=== PATIENT | female | born 1995 | race Caucasian/White ===

== ENCOUNTER → 2017-08-24 08:38 | Outpatient (CLI) | payer OTHER, SELFPAY ==
--- NOTE | 2017-08-24 | DI.MRI.S_ITS ---
BREAST MRI OF BOTH BREASTS : 08/24/2017 CLINICAL: Right breast mass. Comparison is made to exams dated: 06/16/2017 ultrasound, 06/16/2017 ultrasound - [facility], 11/26/2015 ultrasound, and 11/26/2015 ultrasound [facility]. Informed consent was obtained from the patient. Axial T1, T2, and pre and post contrast T1 images were obtained. Bilateral background breast enhancement is moderate. There is no abnormal enhancement, masses, or areas of distortion bilaterally. No MRI abnormality to correspond to the bilateraly clinical areas of concern. IMPRESSION: NEGATIVE There is no abnormality seen in either breast to correspond with the area of clinical concern, however, clinical followup is recommended. There is no MRI evidence of malignancy bilaterally. This exam was interpreted at Station ID: [id number]. Electronically Signed By: Luisito Horta M.D. cj/:08/25/2017 08:21:25 Entry: - 08/25/2017 08:21:25 copy to: [facility] ACR BI-RADS Category 1: Negative [id number]
== END ==
PROVIDERS: Family Provider Family Medicine; PCP Family Medicine; Visit Provider Surgery
DX: N63.10 Unspecified lump in the right breast, unspecified quadrant (principal)
CPT/HCPCS: C8908

== ENCOUNTER → 2018-07-26 12:02 | Outpatient (CLI) | payer OTHER, SELFPAY ==
--- NOTE | 2018-07-26 12:03 | DI.RAD.S_ITS ---
PROCEDURE: XR ACUTE ABDOMEN SERIES INDICATIONS: Constipation, vomiting TECHNIQUE: One view chest and two views of the abdomen were acquired. COMPARISON: None. FINDINGS: Surgical changes and devices: None. Chest: Lungs are clear. Heart size is normal. No pleural effusions. No pneumoperitoneum. Abdomen: Bowel gas pattern is normal. No suspicious calcifications. Visualized solid organ contours appear normal. Bones: No suspicious bony lesions. IMPRESSION: Normal for age, source of current emesis symptoms is not seen. Dictated by: Rufino Han M.D. on 07/26/2018 at 13:11 Approved by: Rufino Han M.D. on 07/26/2018 at 13:11
== END ==
PROVIDERS: Visit Provider Registered Nurse
DX: K59.00 Constipation, unspecified (principal); R11.10 Vomiting, unspecified
CPT/HCPCS: 74022

== ENCOUNTER → 2019-07-02 13:32 | Outpatient (CLI) | payer OTHER, SELFPAY ==
--- NOTE | 2019-07-02 13:34 | DI.US.S_ITS ---
LIMITED ULTRASOUND OF RIGHT BREAST: 07/02/2019 CLINICAL: Area of palpable diffuse masses right breast. Comparison is made to exams dated: 08/24/[address] [facility], 06/16/2017 ultrasound, and 06/16/2017 ultrasound - [facility]. Real-time ultrasound of the right breast 4-6 o'clock region was performed. Jackson scale images of the real-time examination were reviewed. No significant abnormalities were seen sonographically in the right breast in the region of palpable abnormalities. IMPRESSION: NEGATIVE There is no sonographic evidence of malignancy. Patient is advised to monitor for significant change. Recommend continued clinical surveillance. Return to annual mammogram screening schedule is recommended. This exam was interpreted at Station ID: [id number]. Electronically Signed By: Jose Dominguez M.D. slc/:07/02/2019 15:24:13 copy to: [facility] letter sent: Clinical Evaluation Ultrasound BI-RADS: 1 Negative
--- NOTE | 2019-07-02 13:34 | DI.US.S_ITS ---
LIMITED ULTRASOUND OF LEFT BREAST: 07/02/2019 CLINICAL: Diffuse area of left breast masses. Comparison is made to exams dated: 08/24/2017 breast MRI - [facility], 06/16/2017 ultrasound, 06/16/2017 ultrasound [facility], 11/26/2015 ultrasound, and 11/26/2015 ultrasound [facility]. Real-time ultrasound of the left breast 1-3 o'clock and 9 o'clock regions was performed. Jackson scale images of the real-time examination were reviewed. No significant abnormalities were seen sonographically in the left breast in the region of palpable abnormalities. IMPRESSION: NEGATIVE There is no sonographic evidence of malignancy. Patient is advised to monitor breasts for significant change. Recommend continue clinical surveillance. Return to annual mammogram screening schedule is recommended. This exam was interpreted at Station ID: [id number]. Electronically Signed By: Jose Dominguez M.D. slc/:07/02/2019 15:22:43 copy to: [facility] letter sent: Clinical Evaluation Ultrasound BI-RADS: 1 Negative
== END ==
PROVIDERS: PCP Registered Nurse; Referring Provider Registered Nurse; Visit Provider Registered Nurse
DX: N63.10 Unspecified lump in the right breast, unspecified quadrant (principal); N63.20 Unspecified lump in the left breast, unspecified quadrant
CPT/HCPCS: 76642

== ENCOUNTER → 2019-12-18 11:11 | Outpatient (CLI) | payer OTHER, SELFPAY ==
--- NOTE | 2019-12-18 11:12 | DI.US.S_ITS ---
PROCEDURE: US ABDOMEN COMPLETE INDICATIONS: abdominal pain, nausea, vomiting 3 months TECHNIQUE: Real-time scanning was performed of the abdominal and retroperitoneal organs, with image documentation. COMPARISON: [facility], CR, XR ACUTE ABDOMEN SERIES, 07/26/2018, 12:06. FINDINGS: Liver: Liver is normal in size and homogeneous in echotexture. Gallbladder: No findings of gallstones or sludge are seen. The gallbladder wall is not thickened, measuring 3 mm or less. No specific pericholecystic fluid is seen. The sonographic Delatorre sign is negative. Biliary ducts: Intrahepatic bile ducts are non-dilated. Extrahepatic bile duct caliber measures 2 mm. Normal is 6-7 mm or less in diameter, or 10 mm or less post-cholecystectomy. Pancreas: Visualized portions of the pancreas are sonographically normal. Spleen: Spleen is normal in size and homogeneous in echotexture. Kidneys: Kidneys are normal in size and echotexture. Right kidney measures 9.8 cm long; left kidney measures 9.6 cm long. No hydronephrosis or nephrolithiasis. No solid masses. Aorta: Visualized aorta is normal in caliber at less than 3 cm. Iliacs: Proximal common iliac arteries are normal in caliber at less than 2.5 cm. IVC: Intrahepatic inferior vena cava is patent. Miscellaneous: No free abdominal fluid. IMPRESSION: The gallbladder demonstrates a normal sonographic appearance. No biliary dilatation is seen. Negative ultrasound. Dictated by: Lauro Nance M.D. on 12/18/2019 at 12:07 Approved by: Lauro Nance M.D. on 12/18/2019 at 12:08
== END ==
PROVIDERS: PCP Nurse Practitioner Family; Referring Provider Nurse Practitioner Family; Visit Provider Nurse Practitioner Family
DX: R10.9 Unspecified abdominal pain (principal); R11.2 Nausea with vomiting, unspecified
CPT/HCPCS: 76700

== ENCOUNTER → 2020-03-20 16:31 | Outpatient (CLI) | payer OTHER, SELFPAY ==
[2020-03-20 17:29] LABS: Influenza A - CEPHEID Flu A NEGATIVE (NEGATIVE); Influenza B - CEPHEID Flu B NEGATIVE (NEGATIVE)
[2020-03-20 18:26] LABS: COVID19 -Nasal RAPID Negative (Negative)
== END ==
PROVIDERS: PCP Nurse Practitioner Family; Visit Provider Family Medicine
DX: J02.9 Acute pharyngitis, unspecified (principal); R05 Cough; R09.81 Nasal congestion
CPT/HCPCS: 87502; 87635

== ENCOUNTER → 2020-05-16 16:13 | Outpatient (CLI) | payer OTHER, SELFPAY ==
[2020-05-16 16:32] LABS: Hematocrit 38.5 % (36-46); Mean Corpuscular HGB Conc 33.8 % (30-36); Mean Corpuscular Hemoglobin 29.2 PG (26-34); Mean Corpuscular Volume 86.4 fL (80-100); Platelet Count 257 X10^3/uL (150-400); Red Blood Cell Count 4.46 X10^6/uL (4.0-5.2); Red Cell Distribution Width 12.8 % (11.6-14.8); White Blood Cell Count 8.5 X10^3/uL (4.5-11.0)
[2020-05-16 16:49] LABS: Alanine Aminotransferase 29 IU/L (<35); Albumin 4.5 g/dL (3.5-5.0); Albumin Globulin Ratio 1.5 (1.0-2.8); Alkaline Phosphatase 38 U/L (38-126); Aspartate Aminotransferase 27 IU/L (14-36); BUN Creatinine Ratio 23.3 (6-22); Bilirubin Total 0.4 mg/dL (0.2-1.3); Blood Urea Nitrogen 17 mg/dL (7-17); Calcium 9.4 mg/dL (8.4-10.2); Carbon Dioxide 27 mmol/L (22-32); Chloride 106 mmol/L (98-107); Estimated Glomerular Filt Rate > 60.0 mL/min (>60); Globulin 3.1 g/dL (1.7-4.1); Glucose 93 mg/dL (70-100); HEMOLYSIS < 15 (0-50); Potassium 3.6 mmol/L (3.4-5.1); Sodium 137 mmol/L (137-145); Total Protein 7.6 g/dL (6.3-8.2)
[2020-05-16 16:50] LABS: Pregnancy Test Urine Negative (Negative)
[2020-05-16 17:22] LABS: TSH w/ Reflex to FT4 1.58 uIU/mL (0.47-4.68)
== END ==
PROVIDERS: PCP Nurse Practitioner Family; Referring Provider Nurse Practitioner Family; Visit Provider Nurse Practitioner Family
DX: F41.9 Anxiety disorder, unspecified (principal); R10.9 Unspecified abdominal pain; R11.2 Nausea with vomiting, unspecified
CPT/HCPCS: 36415; 80053; 81025; 84443; 85027

== ENCOUNTER → 2020-11-19 12:43 | Outpatient (CLI) | payer OTHER, SELFPAY ==
--- NOTE | 2020-11-19 12:45 | DI.US.S_ITS ---
LIMITED ULTRASOUND OF RIGHT BREAST: 11/19/2020 CLINICAL: Focal right breast swelling and pain. Comparison is made to exams dated: 10/16/2019 ultrasound - [facility], 07/02/2019 ultrasound, 08/24/2017 breast MRI - [facility], 06/16/2017 ultrasound - [facility], and 11/26/2015 ultrasound [facility]. Color flow and real-time ultrasound of the right breast were performed. Jackson scale images of the real-time examination were reviewed. No abnormality demonstrated in the breast. IMPRESSION: NEGATIVE There is no sonographic evidence of malignancy. This exam was interpreted at Station ID: [id number]. Electronically Signed By: Naren Hunter M.D. jr/:11/19/2020 13:12:03 copy to: [facility] letter sent: Normal Exam Ultrasound BI-RADS: 1 Negative
== END ==
PROVIDERS: PCP Nurse Practitioner Family; Referring Provider Nurse Practitioner Family; Visit Provider Nurse Practitioner Family
DX: N63.10 Unspecified lump in the right breast, unspecified quadrant (principal); N64.4 Mastodynia
CPT/HCPCS: 76642

== ENCOUNTER → 2021-06-18 15:50 | Outpatient (CLI) | payer OTHER, SELFPAY ==
[2021-06-18 18:07] LABS: HCG Quantitative /Beta subunit 22830 mIU/mL
== END ==
PROVIDERS: PCP Nurse Practitioner Family; Referring Provider Obstetrics & Gynecology; Visit Provider Obstetrics & Gynecology
DX: N91.2 Amenorrhea, unspecified (principal)
CPT/HCPCS: 36415; 84702

== ENCOUNTER → 2021-06-20 12:48 | Outpatient (CLI) | payer OTHER, SELFPAY ==
[2021-06-20 14:54] LABS: HCG Quantitative /Beta subunit 29926 mIU/mL
== END ==
PROVIDERS: PCP Nurse Practitioner Family; Referring Provider Obstetrics & Gynecology; Visit Provider Obstetrics & Gynecology
DX: N91.2 Amenorrhea, unspecified (principal)
CPT/HCPCS: 36415; 84702

== ENCOUNTER → 2021-06-23 14:00 | Outpatient (CLI) | payer OTHER, SELFPAY ==
[2021-06-23 15:11] LABS: HCG Quantitative /Beta subunit 39136 mIU/mL
== END ==
PROVIDERS: PCP Nurse Practitioner Family; Referring Provider Obstetrics & Gynecology; Visit Provider Obstetrics & Gynecology
DX: O20.0 Threatened abortion (principal)
CPT/HCPCS: 36415; 84702

== ENCOUNTER → 2021-06-29 12:36 | Outpatient (CLI) | payer OTHER, SELFPAY ==
[2021-06-29 15:59] LABS: HCG Quantitative /Beta subunit 54247 mIU/mL
[2021-06-29 18:33] LABS: COVID19 -Nasal RAPID Negative (Negative)
== END ==
PROVIDERS: PCP Nurse Practitioner Family; Referring Provider Obstetrics & Gynecology; Visit Provider Obstetrics & Gynecology
DX: Z01.812 Encounter for preprocedural laboratory examination (principal); Z20.822 Contact with and (suspected) exposure to COVID-19; O02.0 Blighted ovum and nonhydatidiform mole
CPT/HCPCS: 36415; 84702; 86850; 86900; 86901; 87635

== ENCOUNTER 2021-06-30 15:06 | Day surgery (SDC) | payer OTHER, SELFPAY ==
[2021-06-29 14:54] VITALS: BMI 21.3
[2021-06-30] VITALS (9 sets, daily range): BP systolic 88–121; BP diastolic 35–76; PULSE 64–80; RESP 14–18; TEMP 36.3–37; O2SAT 98–100; BMI 21.3
--- NOTE | 2021-06-30 | PATH_ITS ---
[facility] Accession Number: [id number] . 01 Material submitted: . product of conception - PRODUCT OF CONCEPTION . 02 Diagnosis: Products of Conception: Products of conception identified. V 07/03/2021 1135 Local . 02 Electronically signed: . Loren Mancia MD, Pathologist NPI- [id number] . 01 Gross description: . Received in one part. . Received in formalin and labeled with the patient's name and designated 1. product of conception is a 5.5 x 3.5 x 1.2 cm aggregate of pink-dixon hemorrhagic tissue fragments and mucoid material. Villous tissue is identified. No parts are identified. Recycling Coordinator sections of the villous tissue are submitted in A1. (CHAPARRO:[id number]) /[facility] 07/02/2021 1717 Local . 02 Pathologist provided ICD-10: O02.0 . 02 CPT . 809229 Specimen Comment: A courtesy copy of this report has been sent to [phone] Performed at: 01 [facility] [address] [id number] MD Mario Pugh MD Phone: [phone] Performed at: 02 [facility] [place] [address] [employer], [place] [id number] MD Sonali Bonds MD Phone: [phone]
--- NOTE | 2021-06-30 15:50 | PM.PREOP ---
Pre-operative Note COVID-19 COVID-19 status: Negative Result date/Date tested (Pos, Neg/Pending): 06/29/21 Criteria for continued procedure: Non-surgical alternatives not available or appropriate per current SOC Interval Note History & Physical reviewed/Exam performed by Physician: Yes Changes to H&P: No
[2021-06-30] MEDS: LACTATED RINGERS 1,000 ML 100 ML IV (16:03)
[2021-06-30] MEDS: DOXYCYCLINE HYCLATE 100 MG TABLET 200 MG PO (16:03)
--- NOTE | 2021-06-30 16:25 | SUR.OPER ---
Lithotomy on padded OR bed, head on pillow, arms secured on padded arm boards at <90 degrees abduction. Legs secured in padded yellow fins stirrups.
--- NOTE | 2021-06-30 16:35 | P.OP_ITS ---
Operative Date/Time/Diagnoses Date of procedure: 06/30/21 Time of procedure: 16:00 Pre-op diagnosis: anembryonic Post-op diagnosis: same Procedure & Clinicians Procedure: suction dilation and curettage Same procedure as scheduled: Yes Indications: anembryonic , unknown gestational age, GS measuring 7 weeks Surgeon: Mary Morales Click Yes if Unassisted: Yes Anesthesia Type: MAC +/- Operative Notes Findings: Normal vulva, vagina, cervix. approximately 8 week sized uterus. Specimen(s): other (products of conception) Estimated Blood Loss (mL): 200 Procedure in detail: After informed consent was obtained and 200mg PO doxycycline was administered, the patient was taken to the operating room where IV sedation was obtained. She was prepped and draped in the dorsal lithotomy postion in the usual sterile fashion, and the bladder drained with a straight cath. A speculum was placed in the vagina and the cervix visualized. The anterior lip of the cervix was grasped with a single toothed tenaculum. Hegar dilator were used to dilate the cervix to 7mm, with only gentle pressure necessary. A 7mm suction tip was placed within the cervix and gently advanced to the fundus by feel. Suction was started and the tip gently rotated as it was withdrawn. Two passes were made with the alcaraz ction tip, and a gentle curettage was performed with removal of a small amount of products of conception. The suction tip was gently reinserted and carefully advanced to the fundus by feel. Two more passes were made with the suction tip, with only blood removed on the last pass. No further bleeding was noted from the cervical os. The tenaculum was removed with spontaneous hemostasis noted. The speculum was removed from the vagina. The patient tolerated the procedure well, and was taken to the PACU in stable condition. Sponge counts were correct x2. IVF: 500ccs LR Complications: none Post-operative Condition: stable Disposition: PACU Plan for aftercare: Routine postop care.
[2021-06-30] MEDS: ONDANSETRON 4 MG/2 ML INJ IV (17:04)
[2021-06-30] MEDS: OXYCODONE IR 5 MG TABLET PO ×2 (17:05→17:56)
[2021-06-30] MEDS: hydrOXYzine pamoate 25 MG CAPSULE PO (17:05)
[2021-06-30] MEDS: LACTATED RINGERS 1,000 ML 42 ML IV (17:07)
[2021-06-30] MEDS: HYDROMORPHONE 2 MG INJ IV ×2 (17:21→17:29)
[2021-06-30] MEDS: ACETAMINOPHEN 325 MG TABLET 650 MG PO (17:27)
--- NOTE | 2021-06-30 17:35 | SUR.PHASEI ---
Assumed care from CLIFTON Donahue. Pt still having 7/10 pain despite vistaril and oxycodone given, Pt then medicated with Dilaudid and Tylenol. Nausea resolved.
--- NOTE | 2021-06-30 17:44 | SUR.PHASEI ---
Dr. Morales to bedside, spoke with pt, examined abdomen and checked her pad. Katerina pad still with no drainage.
--- NOTE | 2021-06-30 17:58 | SUR.PHASEI ---
Medicated with second oxycodone, pt to OPD, stable pain tolerable scant bloody drainage on pad.
== END 2021-06-30 18:30 | disposition home or self-care (01) ==
PROVIDERS: PCP Nurse Practitioner Family; Referring Provider Obstetrics & Gynecology; Visit Provider Obstetrics & Gynecology
PROC: (CPT 58120; principal; 2021-06-30 16:00)
DX: O02.0 Blighted ovum and nonhydatidiform mole (principal); Z3A.01 Less than 8 weeks gestation of pregnancy
CPT/HCPCS: 59812; J1100; J1170; J1885; J2250; J2405; J2704; J3010

== ENCOUNTER → 2021-10-07 13:38 | Outpatient (CLI) | payer OTHER, SELFPAY ==
[2021-10-07 14:06] LABS: Add Manual Diff / Slide Review NO; Basophils Absolute Auto 0 /uL (0-100); Basophils Percent Auto 0.9 % (0-2); Eosinophils Absolute Auto 200 /uL (0-450); Hematocrit 35.9 % (36-46); Hemoglobin 12.1 g/dL (12.0-16.0); Lymphocytes Absolute Auto 2400 /uL (1100-4500); Lymphocytes Percent Auto 45.5 % (25-40); Mean Corpuscular HGB Conc 33.8 % (30-36); Mean Corpuscular Hemoglobin 29.5 PG (26-34); Mean Corpuscular Volume 87.3 fL (80-100); Monocytes Absolute Auto 600 /uL (0-900); Monocytes Percent Auto 10.9 % (3-14); Neutrophils Absolute Auto 2100 /uL (1500-7000); Neutrophils Percent Auto 39.7 % (50-75); Platelet Count 280 X10^3/uL (150-400); Red Blood Cell Count 4.11 X10^6/uL (4.0-5.2); Red Cell Distribution Width 12.6 % (11.6-14.8); White Blood Cell Count 5.2 X10^3/uL (4.5-11.0)
== END ==
PROVIDERS: PCP Nurse Practitioner Family; Referring Provider Specialist; Visit Provider Specialist
DX: N92.3 Ovulation bleeding (principal); R42 Dizziness and giddiness
CPT/HCPCS: 36415; 85025

== ENCOUNTER → 2024-03-14 08:09 | Outpatient (CLI) | payer OTHER, SELFPAY ==
--- NOTE | 2024-03-14 | DI.US.S_ITS ---
LIMITED ULTRASOUND OF RIGHT BREAST AND AXILLA: 03/14/2024 CLINICAL: Palpable right breast lump. Comparison is made to exams dated: 11/19/2020 ultrasound - [facility], 10/16/2019 ultrasound - [facility], 07/02/2019 ultrasound, 08/24/2017 breast MRI - [facility], 06/16/2017 ultrasound - [facility], and 11/26/2015 ultrasound [facility]. Real-time ultrasound of the right breast 5 o'clock, and axilla regions was performed on the areas of interest. Jackson scale images of the real-time examination were reviewed. The right axilla was interogated and normal appearing lymph nodes are visualized. IMPRESSION: BENIGN No right axillary adenopathy. There is no sonographic evidence of malignancy. There is no sonographic abnormality seen in the right breast to correspond with the palpable abnormality, however, clinical followup is recommended. This exam was interpreted at Station ID: [id number]. Electronically Signed By: Kailey Chun M.D. lk/:03/14/2024 11:00:06 copy to: [facility] letter sent: Clinical Evaluation ACR BI-RADS Category 2: Benign
== END ==
PROVIDERS: PCP Student in an Organized Health Care Education/Training Program; Referring Provider Student in an Organized Health Care Education/Training Program; Visit Provider Student in an Organized Health Care Education/Training Program
DX: N63.10 Unspecified lump in the right breast, unspecified quadrant (principal)
CPT/HCPCS: 76642

== ENCOUNTER → 2024-07-17 08:25 | Outpatient (CLI) | payer OTHER, SELFPAY ==
[2024-07-17 08:41] LABS: Add Manual Diff / Slide Review NO; Basophils Absolute Auto 0 /uL (0-100); Basophils Percent Auto 0.4 % (0-2); Eosinophils Absolute Auto 200 /uL (0-450); Eosinophils Percent Auto 1.8 % (2-4); Hematocrit 41.2 % (36-46); Hemoglobin 13.8 g/dL (12.0-16.0); Lymphocytes Absolute Auto 2700 /uL (1100-4500); Lymphocytes Percent Auto 31.5 % (25-40); Mean Corpuscular HGB Conc 33.6 % (30-36); Mean Corpuscular Hemoglobin 30.4 PG (26-34); Mean Corpuscular Volume 90.7 fL (80-100); Monocytes Absolute Auto 700 /uL (0-900); Monocytes Percent Auto 8.5 % (3-14); Neutrophils Absolute Auto 4900 /uL (1500-7000); Neutrophils Percent Auto 57.8 % (50-75); Platelet Count 302 X10^3/uL (150-400); Red Blood Cell Count 4.54 X10^6/uL (4.0-5.2); Red Cell Distribution Width 13.5 % (11.6-14.8); White Blood Cell Count 8.5 X10^3/uL (4.5-11.0)
[2024-07-17 09:01] LABS: HEMOLYSIS < 15 (0-50); Iron 63 ug/dL (37-170)
[2024-07-17 09:02] LABS: Alanine Aminotransferase 30 IU/L (<35); Albumin 4.5 g/dL (3.5-5.0); Albumin Globulin Ratio 1.6 (1.0-2.8); Alkaline Phosphatase 52 U/L (38-126); Aspartate Aminotransferase 44 IU/L (14-36); BUN Creatinine Ratio 27.2 (6-22); Bilirubin Total 0.4 mg/dL (0.2-1.3); Blood Urea Nitrogen 22 mg/dL (7-17); Calcium 9.7 mg/dL (8.4-10.2); Carbon Dioxide 28 mmol/L (22-32); Chloride 101 mmol/L (98-107); Estimated Glomerular Filt Rate > 60 mL/min (>60); Globulin 2.8 g/dL (1.7-4.1); Glucose 95 mg/dL (70-100); HEMOLYSIS < 15 (0-50); Potassium 4.1 mmol/L (3.4-5.1); Sodium 138 mmol/L (137-145); Total Protein 7.3 g/dL (6.3-8.2)
[2024-07-17 09:03] LABS: Hemoglobin A1C% w Est Avg Glu 4.9 % (4.0-6.0)
[2024-07-17 09:12] LABS: Rheumatoid Factor 9.5 IU/mL (<12.0)
[2024-07-17 09:17] LABS: Percent Iron Saturation 18 % (15-50); Total Iron Binding Capacity 345 ug/dL (265-497); Transferrin 305 mg/dL (206-381)
[2024-07-17 09:35] LABS: Thyroid Stimulating Hormone 1.85 uIU/mL (0.47-4.68)
[2024-07-17 09:39] LABS: Ferritin 36 ng/mL (6-137)
[2024-07-17 09:53] LABS: Erythrocyte Sedimentation Rate 6 MM/HR (0-20)
== END ==
PROVIDERS: PCP Student in an Organized Health Care Education/Training Program; Referring Provider Student in an Organized Health Care Education/Training Program; Visit Provider Student in an Organized Health Care Education/Training Program
DX: R20.0 Anesthesia of skin (principal); R20.2 Paresthesia of skin
CPT/HCPCS: 36415; 80053; 82728; 83036; 83540; 83550; 84443; 85025; 85651; 86430

== ENCOUNTER → 2024-09-05 10:25 | Outpatient (CLI) | payer OTHER, SELFPAY ==
--- NOTE | 2024-09-05 10:26 | DI.US.S_ITS ---
US breast RT limited, MM diagnostic mammo BI: 09/05/2024 BI-RADS: 2 CLINICAL: 29-year old female for bilateral diagnostic mammogram and right diagnostic breast ultrasound. Tyrer-Cuzick lifetime risk of 39.0%. No personal or first- degree family history of breast cancer. Current reported family history of breast cancer: maternal grandmother and paternal aunt. The patient reports a palpable abnormality (2 years) and pain (2 years) in the right breast. PRIOR EXAMS 03/14/2024, 11/19/2020, 07/02/2019, 08/24/2017, 11/26/2015. MAMMOGRAPHY TECHNIQUE: 2D and 3D (tomosynthesis) digital mammographic views obtained, with additional images as needed for full coverage. Current study was also evaluated with a Computer Aided Detection (CAD) system. ULTRASOUND TECHNIQUE Real-time salinas scale and color doppler imaging of the area of clinical interest was performed with image documentation. DENSITY C. The breasts are heterogeneously dense, which may obscure small masses. MAMMOGRAPHY FINDINGS Right: A skin marker was placed in the area of clinical concern, and no mammographic abnormality is identified. No suspicious mass, asymmetry, microcalcification, or other abnormality seen. Left: No suspicious mass, asymmetry, microcalcification, or other abnormality seen. ULTRASOUND FINDINGS Right: Outer at 9:00, Retroareolar: There is incidental benign duct ectasia seen in the retroareolar region at 9 o'clock. No suspicious sonographic finding with typically benign findings noted. Right: Lower Inner at 5:00, 5 cm from nipple: There is no sonographic abnormality in the area of clinical palpable concern at 5 o'clock, 5 cm from the nipple. IMPRESSION: Right * No evidence of malignancy with benign findings. Left * No evidence of malignancy. RECOMMENDATIONS Right * Clinical follow-up is recommended, and further management of palpable abnormalities or other focal signs or symptoms should be based on the results of clinical evaluation. If palpable abnormality or other concerning symptom persists or progresses, further clinical evaluation should be considered. Bilateral * Annual screening mammography beginning at age 40. COMMENTS: Findings and recommendations were conveyed to the patient during today's evaluation. OVERALL ASSESSMENT CATEGORY BI-RADS-2: Benign. The [employer] recommends annual screening mammography beginning at age 40 for women with average risk of breast cancer. ELECTRONICALLY SIGNED: Monae Figueroa M.D. on 09/05/2024 at 02:03:49 PM PT Interpreting Station ID: [id number]
== END ==
LOC: US 10:26
PROVIDERS: PCP Student in an Organized Health Care Education/Training Program; Referring Provider Student in an Organized Health Care Education/Training Program; Visit Provider Student in an Organized Health Care Education/Training Program
DX: N60.41 Mammary duct ectasia of right breast (principal); N63.10 Unspecified lump in the right breast, unspecified quadrant; R92.333 Mammographic heterogeneous density, bilateral breasts; Z80.3 Family history of malignant neoplasm of breast
CPT/HCPCS: 76642; 77066; G0279

== ENCOUNTER → 2024-10-11 10:06 | Outpatient (CLI) | payer OTHER, SELFPAY ==
--- NOTE | 2024-10-11 10:07 | DI.US.S_ITS ---
PROCEDURE: US PELVIC COMPLETE INDICATIONS: assess for retained POC after TAB 1 wk ago TECHNIQUE: Real-time scanning was performed of the pelvic organs, with image documentation. Additional endovaginal scanning was necessary due to incomplete visualization of the adnexal and endometrial structures by transabdominal scanning. COMPARISON: None. FINDINGS: Uterus: Uterus is anteverted and normal in size at 8.3 x 3.7 x 5.4 cm. The myometrium is homogeneous. The endometrium measures 8.1 mm combined thickness. Ovaries: The right ovary measures 3.5 x 1.2 x 2.1 cm, with a calculated ovarian volume of 0.7 cc. The left ovary measures 2.2 x 2.0 x 1.8 cm, with a calculated ovarian volume of 4.2 cc. The ovaries have a normal sonographic appearance. Less than 12 follicles can be seen in each ovary. No adnexal masses are seen. Other: No pathologic free abdominal or pelvic fluid. Slight prominence uterine vasculature overall nonspecific. IMPRESSION: No visualized retained products of conception. We strive to produce accurate, complete, and clear reports of imaging services. To assist us in improving patient care, this report was composed using standard report templates and voice recognition software. Therefore, it may contain abnormal punctuation, insertions and/or omissions. Occasional wrong-word or sound-alike substitutions may occur. Though we review the report and make efforts to correct it, we do recommend that the report be read carefully in proper context to recognize any text inaccuracies. Dictated by: Eva Swain M.D. on 10/11/2024 at 11:14 Approved by: Eva Swain M.D. on 10/11/2024 at 11:15
== END ==
PROVIDERS: PCP Student in an Organized Health Care Education/Training Program; Referring Provider Student in an Organized Health Care Education/Training Program; Visit Provider Family Medicine
DX: Z34.80 Encounter for supervision of other normal pregnancy, unspecified trimester (principal)
CPT/HCPCS: 76830; 76856

== ENCOUNTER → 2024-10-16 10:33 | Outpatient (CLI) | payer OTHER, SELFPAY ==
[2024-10-16 12:15] LABS: HCG Quantitative /Beta subunit 62.75 mIU/mL
== END ==
PROVIDERS: PCP Student in an Organized Health Care Education/Training Program; Referring Provider Family Medicine; Visit Provider Family Medicine
DX: Z34.80 Encounter for supervision of other normal pregnancy, unspecified trimester (principal)
CPT/HCPCS: 36415; 84702

== ENCOUNTER → 2025-01-14 14:53 | Outpatient (CLI) | payer OTHER, SELFPAY ==
--- NOTE | 2025-01-14 14:55 | DI.RAD.S_ITS ---
PROCEDURE: XR KNEE LT 3V INDICATIONS: Left knee pain TECHNIQUE: 3 views of the knee were acquired. COMPARISON: None. FINDINGS: Bones: Prior ACL reconstruction with postsurgical changes. Anatomic left knee alignment. No fractures or dislocations. No significant patellar subluxation. No suspicious bony lesions. Soft tissues: Small to moderate suprapatellar joint effusion. No suspicious soft tissue calcifications. IMPRESSION: Prior ACL reconstruction. Anatomic left knee alignment. No acute fracture or dislocation. No gross hardware loosening or failure. Small to moderate suprapatellar joint effusion. Dictated by: Kadeem Carpenter M.D. on 01/14/2025 at 15:09 Approved by: Kadeem Carpenter M.D. on 01/14/2025 at 15:10
== END ==
PROVIDERS: PCP Student in an Organized Health Care Education/Training Program; Referring Provider Student in an Organized Health Care Education/Training Program; Visit Provider Physician Assistant
DX: M25.562 Pain in left knee (principal); M25.462 Effusion, left knee
CPT/HCPCS: 73562

== ENCOUNTER → 2025-02-20 07:32 | Outpatient (CLI) | payer OTHER, SELFPAY ==
--- NOTE | 2025-02-20 07:33 | DI.US.S_ITS ---
PROCEDURE: US OB <= 14 WEEKS FETUS
== END ==
LOC: US 07:32
PROVIDERS: PCP Student in an Organized Health Care Education/Training Program; Referring Provider Student in an Organized Health Care Education/Training Program; Visit Provider Student in an Organized Health Care Education/Training Program
DX: Z34.81 Encounter for supervision of other normal pregnancy, first trimester (principal); Z3A.08 8 weeks gestation of pregnancy
CPT/HCPCS: 76801; 76817